=== PATIENT | male | born 1940 | race Caucasian/White ===

== ENCOUNTER 2017-02-23 16:49 | Inpatient (IN) | payer MEDICARE, OTHER ==
--- NOTE | ~2017-02-23 | HP ---
History And Physical [address] [place]. [address] NAME: RANJAN LIEBERMAN : 40 STATUS : ADM IN [facility]#: [id number] AGE: 76 ADM/REG DATE : 02/23/17 MR#: [id number] REPORT SERV DATE: 02/24/17 DICTATED BY: SHYLA WEST DATE: 02/24/17 REPORT STATUS : Draft TRANSCRIBED BY: MODL DATE: 02/24/17 DATE OF ADMISSION: 02/23/2017 SERVICE: General Surgery Service. CHIEF COMPLAINT: Enterocutaneous fistula, fevers, and chills. HISTORY OF PRESENT ILLNESS: This is a 76-year-old male well known to the service with a history of ventral hernia repair with mesh as well as radical cystectomy with ileal conduit that was complicated with a small bowel injury with a known enterocutaneous fistula. The fistula has been managed with local wound care, attempted collagen plug, and recently had Radiology placed drain within the fistula on 02/18/2017 to control the output. Following that procedure, he presented to an outside hospital with a complaint of fever and chills as well as headache. There, he was started on empiric vancomycin and Zosyn. Per his and his 's report, his fistula output has been stable and what seems to be a 25-50 mL of output per day of succus. The patient and his also report that he initially had a large area of cellulitis around his fistula site which has since resolved. His onset of his symptoms was approximately 48 hours ago. He denies any shortness of breath, chest pain, or other systemic complaints. PAST MEDICAL HISTORY: Hyperlipidemia, hypertension, diabetes, depression, GERD, sleep apnea, urolithiasis, chronic kidney disease. SURGICAL HISTORY: CABG, cystectomy with ileal conduit, small-bowel resection, ventral hernia repair with mesh, EGD, colonoscopy, and back surgery. SOCIAL HISTORY: He denies any alcohol, tobacco, or illicit drug use. FAMILY HISTORY: Coronary artery disease. ALLERGIES: ATORVASTATIN AND TROVAFLOXACIN CAUSES HIVES. HOME MEDICATIONS: Med rec reviewed. Please see the electronic medical reconciliation for the full list of patient's medications. REVIEW OF SYSTEMS: Pertinent positives and negatives as above per the HPI. PHYSICAL EXAMINATION: VITAL SIGNS: Temperature 97.9, blood pressure 114/71, heart rate 57, respirations 18, breathing 97% on room air. GENERAL: This is an adult white male, in no acute distress. He is nontoxic-appearing. He is alert and oriented x3. He is tremulous. CARDIOVASCULAR: Regular rate and rhythm with a systolic murmur. PULMONARY: Clear to auscultation bilaterally. ABDOMINAL EXAM: Abdomen is soft, nondistended, nontender and in his right lower quadrant, History And Physical [address] [id number] NAME: RANJAN LIEBERMAN : 40 STATUS : ADM IN [facility]#: [id number] AGE: 76 ADM/REG DATE : 02/23/17 MR#: [id number] REPORT SERV DATE: 02/24/17 DICTATED BY: SHYLA WEST DATE: 02/24/17 REPORT STATUS : Draft TRANSCRIBED BY: FERNY DATE: 02/24/17 he has a urostomy that appears viable with output. At his midline, he has a fistula opening with the radiology catheter in place with some minimal succus draining into a collection bag. The skin surrounding the fistula site is clean, dry, intact, nonirritated, and there is no surrounding erythema. No crepitus. No fluctuance noted. LABORATORY DATA: White count 9.4, hematocrit 38.4. Renal panel significant for creatinine of 1.42 up from 1.18. IMAGING: From the outside hospital reports, CT scan of the abdomen and pelvis shows new right hydronephrosis, however, there are no other new acute findings. There was no distinct free fluid or abscess within the abdomen. ASSESSMENT AND PLAN: This is a 76-year-old male with history of ileal conduit, known enterocutaneous fistula, fevers, and chills. 1. Currently afebrile, vitals are stable. Transfer papers at the outside hospital showed no recorded fevers either. White count has been within normal limits during the entire time. 2. We will hold antibiotics for now. If presents with fever or leukocytosis, we will re- culture and consider empiric antibiotics. 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 3. We will continue to monitor output and continue with local wound care of his enterocutaneous fistula. 4. We will start deep vein thrombosis prophylaxis. Continue a strict glucose control with sliding scale insulin. Continue home medications. 5. Keep n.p.o. for now. 6. Bfjkt-nf-ijigopl kidney injury. Continue IV fluids. Recheck BMP in the morning. Likely, we will obtain Urology consult given the complex surgical history and possible urinary tract infection. DICTATED BY: MD KELSEY Davies/FERNY Shyla West M.D. / [id number] CC: Shyla West M.D.
[~2017-02-23 16:49] MED LIST: ASAB PO; ATV.5 PO; BETA CAROTENE PO; CO Q-10100 MG PO; CO Q-10200 MG PO; COQ-10200 MG PO; FERROUS SULF325 M1 PO; FISH OIL1200 MG PO; GLUCCHONDR PO; L40 PO; LEXAPRO20 PO; LINZESS 290 M290 MCG PO; LOP100 PO; LOP25 PO; LORTAB 5 PO; LYRICA75 PO; MERREM1 GM IV; MOBIC15 MG PO; MULTI-VIT HP OR; MULTIPLE VIT PO; NITROSTAT0.4 MG SL; NORV10 PO; NORV5 PO; PLAVIX PO; PRILO PO; PRILOSEC40 MG PO; PRIN20 PO; PROBIOTICS PO; PROTONIX PO; RESTORIL30 MG PO; SINGULAIR1 PO; SUPER-B COMPLEX PO; V5 PO; VICODINTAB PO; ZOCOR40 PO; ZOL100 PO; ZOL50 PO
[2017-02-24 06:10] LABS: BASOPHILS 0.2 %; BASOPHILS ABSOLUTE 0.01 10/3/uL (0.0-0.16); EOSINOPHILS 0.7 %; EOSINOPHILS ABSOLUTE 0.04 10/3/uL (0.0-0.53); HEMATOCRIT 41.8 % (40.0-51.0); HEMOGLOBIN 13.6 g/dL (13.6-17.8); IMMATURE GRANULOCYTES 0.3 %; IMMATURE GRANULOCYTES ABSOLUTE 0.02 10/3/uL (0.0-0.11); LYMPHOCYTES 17.5 %; LYMPHOCYTES ABSOLUTE 1.05 10/3/uL (0.67-4.30); MEAN CORPUS HGB CONC 32.5 g/dL (32.0-36.0); MEAN CORPUSCULAR HEMOGLOB 27.4 pg (26.0-34.0); MEAN CORPUSCULAR VOLUME 84.3 fL (80-100); MONOCYTES 19.2 %; MONOCYTES ABSOLUTE 1.15 10/3/uL (0.21-1.20); NEUTROPHILS 62.1 %; NEUTROPHILS ABSOLUTE 3.73 10/3/uL (2.02-8.40); PLATELET COUNT 121 10/3/uL (150-400); RED CELL COUNT 4.96 10/6/uL (4.7-6.1)
[2017-02-24 06:12] LABS: MANUAL DIFF NO %
[2017-02-24 06:15] LABS: INTERNATIONAL NORMAL RATI 1.1 UNITS (-); PROTIME (NOT ORD) 14.2 SEC (12.0-14.5)
[2017-02-24 07:45] LABS: PREALBUMIN 11.3 MG/DL (17.0-43.0)
[2017-02-24 07:46] LABS: A/G RATIO 0.9 (0.7-1.9); ALBUMIN 3.2 G/DL (3.5-5.0); CALCIUM, SERUM 8.2 MG/DL (8.5-10.4); CHLORIDE, SERUM 108 MMOL/L (96-112); CREATININE 1.07 MG/DL (0.70-1.30); GFR AFRICAN AMERICAN 78 ML/MIN (>=60); GFR NON AFRICAN AMERICAN 67 ML/MIN (>=60); GLOBULIN 3.6 G/DL (2.5-4.1); GLUCOSE, SERUM 107 MG/DL (60-99); POTASSIUM, SERUM 3.4 MMOL/L (3.5-5.3); SGOT(AST) 23 U/L (5-40); SGPT(ALT) 23 U/L (5-65); SODIUM, SERUM 142 MMOL/L (135-148); TOTAL BILIRUBIN 0.6 MG/DL (0-1.2); TOTAL PROTEIN 6.8 G/DL (6.0-8.5)
[2017-02-24 07:47] LABS: ALKALINE PHOSPHATASE 73 U/L (45-117); BUN (BLOOD UREA NITROGEN) 18 MG/DL (6-23); CO2 (CARBON DIOXIDE) 26 MMOL/L (24-34); PHOSPHORUS, SERUM 1.3 MG/DL (2.5-4.5); TRIGLYCERIDE 151 MG/DL (< 150)
[2017-02-24 14:30] LABS: ASCORBIC ACID (UR NOT ORDER) NEG (NEG); BILIRUBIN, URINE NEGATIVE (NEG); KETONE, URINE TRACE MG/DL (NEG); LEUKOCYTE ESTERASE(NOT OR TRACE (NEG); WBC (NOT ORDERED) (RFLEX) 47 (0-5)
[2017-02-24] MEDS ORDERED: FLAG500TAB PO (17:01)
[2017-03-18] MEDS ORDERED: NORCO1 TA1 PO (13:54)
[2017-05-06] MEDS ORDERED: MULTIPLE VIT PO (11:52)
[2017-05-06] MEDS ORDERED: ORAZINC110 MG PO (11:53)
[2017-05-06] MEDS ORDERED: VITC500 PO (11:53)
[2017-05-06] MEDS ORDERED: VITAMIN B PO (11:55)
[2017-05-26] MEDS ORDERED: NORCO1 TA2 PO (10:25)
== END 2017-02-24 17:40 | disposition home or self-care (01) | DRG 394 ==
LOC: 5SO 16:49
PROVIDERS: Specialist
PROC: 05HY33Z Insertion of Infusion Device into Upper Vein, Percutaneous Approach (ICD-10-PCS; principal; 2017-02-23)
DX: K63.2 Fistula of intestine (principal); N17.9 Acute kidney failure, unspecified; E11.22 Type 2 diabetes mellitus with diabetic chronic kidney disease; Z93.6 Other artificial openings of urinary tract status; E78.5 Hyperlipidemia, unspecified; I12.9 Hypertensive chronic kidney disease with stage 1 through stage 4 chronic kidney disease, or unspecified chronic kidney disease; N18.9 Chronic kidney disease, unspecified; F32.9 Major depressive disorder, single episode, unspecified; K21.9 Gastro-esophageal reflux disease without esophagitis; Z79.899 Other long term (current) drug therapy
CPT/HCPCS: 20501; 76080; 80053; 81001; 82330; 82962; 83735; 84100; 84134; 84478; 85025; 85610; 87086; 99152; 99153; A9270-GY; C1729; C1769; J1170; J1200; J2250; J2405; J3010; Q9967